=== PATIENT | female | born 1950 | race Caucasian/White ===

== ENCOUNTER 2016-12-04 10:35 | Emergency (ER) | payer OTHER ==
[~2016-12-04] VITALS: Ht 160 cm; Wt 65.3 kg
[2016-12-04 10:38] VITALS: BP 142/64
== END 2016-12-04 11:12 | disposition home or self-care (01) ==
LOC: ER 10:38
DX: J32.9 Chronic sinusitis, unspecified (principal); I10 Essential (primary) hypertension
CPT/HCPCS: 99282; A4606; Z7610